=== PATIENT | male | born 1935 | race Caucasian/White ===

== ENCOUNTER → 2018-07-09 | Outpatient (CLI) | payer MEDICARE ==
[~2018-07-09] MED LIST: AMLO5TAB7 PO; ASPI-555 PO; CHOL500050 PO; FLUT220HFA IH; ISOSORBIDE MONONITRATE 30 MG PO; LISI10TA7 PO; NITR0.3T11 SL; PIOG45TA4 PO; PRAV10TA39 PO; PRED1TAB PO; PREDAOS OD; SITA50TA PO; UBID100C10 PO
== END | disposition home or self-care (01) ==
LOC: RAH 09:55
PROVIDERS: ATTEND Internal Medicine Critical Care Medicine
DX: J90 Pleural effusion, not elsewhere classified (principal); J98.11 Atelectasis; M47.895 Other spondylosis, thoracolumbar region
CPT/HCPCS: 71046

== ENCOUNTER 2018-08-10 06:44 | Day surgery (SDC) | payer MEDICARE ==
[2018-08-07 14:24] VITALS: BP 114/62
[2018-08-10] VITALS (10 sets, daily range): BP systolic 107–149; BP diastolic 60–77
[~2018-08-10] VITALS: Ht 188 cm; Wt 78.2 kg
[~2018-08-10 06:44] MED LIST changes: +ALLO100T PO; -AMLO5TAB7 PO; +AMLO5TAB9 PO; +FLUT16H NS; +FOLI1TAB15 PO; +KRIL1CAP12 PO; -LISI10TA7 PO; -NITR0.3T11 SL; -PREDAOS OD
[2018-08-10 07:36] LABS: BASOPHILS % (AUTO) 0.7 % (0.0-5.0); HEMATOCRIT 40.5 % (42-54); LYMPHOCYTES % (AUTO) 16.7 % (21.0-51.0); MEAN CORPUSCULAR HEMOGLOBIN 27.5 pg (27.0-33.0); MEAN CORPUSCULAR HGB CONC 32.1 g/dL (32.0-36.0); MEAN CORPUSCULAR VOLUME 85.6 fL (79-99); NEUTROPHILS % (AUTO) 66.6 % (40.0-77.0); PLATELET COUNT (AUTO) 268 K/uL (130-400); RED BLOOD CELL COUNT(AUTO) 4.73 MIL/uL (4.50-6.20); RED CELL DISTRIBUTION WIDTH 14.6 % (11.0-15.5); WHITE BLOOD COUNT (AUTO) 5.9 K/uL (4.8-10.8)
[2018-08-10 07:46] LABS: CREATININE 1.7 mg/dL (0.5-1.5)
[2018-08-10 07:49] LABS: INR 0.95 (0.85-1.15); PARTIAL THROMBOPLASTIN TIME 27.7 SEC (26.3-35.5)
[2018-08-10] MEDS ORDERED: SODIUM CHLORIDE 0.9% 1000ML 1,000 ML IV ONE (08:18)
[2018-08-10] MEDS ORDERED: LIDOCAINE HCL/EPINEPHRINE 50 ML VIAL IJ ONE (08:25)
[2018-08-10] MEDS ORDERED: LIDOCAINE HCL 1% MDV 50ML VIAL ONE (08:26)
--- NOTE | 2018-08-10 12:45 | NUR ---
transferred to [facility] in stable condition via stretcher by [facility]
[2018-08-10] MEDS ORDERED: FENTANYL CITRATE PF 50 MCG/1 ML 2ML VIAL ONE (13:07)
[2018-08-10] MEDS ORDERED: MIDAZOLAM HCL 1 MG/ML 2ML VIAL ONE (13:18)
[2018-08-10] MEDS ORDERED: OCTYL 2-CYANOACRYLATE 1 EACH TP ONE (13:31)
--- NOTE | 2018-08-10 14:05 | NUR ---
back from label paster, port a cath to right upper chest dressing clean dry intact, no signs of hematoma or bleeding, dressing to right neck area clean dry intact no signs of hematoma or bleeding...awake,alert, oriented x3, head of bed elevated...bilateral breath sounds clear, no shortness of breath
--- NOTE | 2018-08-10 16:00 | NUR ---
dressings to right upper chest and right neck no hematoma,no bleeding,no shortness of breath...stable condition for discharge
== END 2018-08-10 16:05 | disposition home or self-care (01) ==
LOC: DAH 06:44
PROVIDERS: ATTEND Internal Medicine Hematology & Oncology
DX: Z45.2 Encounter for adjustment and management of vascular access device (principal); E78.5 Hyperlipidemia, unspecified; I12.9 Hypertensive chronic kidney disease with stage 1 through stage 4 chronic kidney disease, or unspecified chronic kidney disease; E11.22 Type 2 diabetes mellitus with diabetic chronic kidney disease; N18.9 Chronic kidney disease, unspecified; I25.10 Atherosclerotic heart disease of native coronary artery without angina pectoris; Z98.890 Other specified postprocedural states; Z79.84 Long term (current) use of oral hypoglycemic drugs; Z87.891 Personal history of nicotine dependence; Z88.8 Allergy status to other drugs, medicaments and biological substances
CPT/HCPCS: 36415; 36561; 77001; 80048; 82948; 85025; 85610; 85730; A4606; C1788; C1894; J1644 ×2; J2250; J3010; J3490; J7030; 99156; 99157

== ENCOUNTER 2018-08-16 11:05 | Emergency (ER) | payer MEDICARE ==
[2018-08-16 12:14] LABS: BASOPHILS % (AUTO) 0.3 % (0.0-5.0); EOSINOPHILS % (AUTO) 1.1 % (0.0-8.0); HEMATOCRIT 40.9 % (42-54); LYMPHOCYTES % (AUTO) 5.8 % (21.0-51.0); MEAN CORPUSCULAR HEMOGLOBIN 27.6 pg (27.0-33.0); MEAN CORPUSCULAR HGB CONC 32.6 g/dL (32.0-36.0); MEAN CORPUSCULAR VOLUME 84.7 fL (79-99); MONOCYTES % (AUTO) 0.8 % (3.0-13.0); PLATELET COUNT (AUTO) 206 K/uL (130-400); RED BLOOD CELL COUNT(AUTO) 4.83 MIL/uL (4.50-6.20); RED CELL DISTRIBUTION WIDTH 14.6 % (11.0-15.5); WHITE BLOOD COUNT (AUTO) 6.9 K/uL (4.8-10.8)
[2018-08-16 12:27] LABS: INR 0.91 (0.85-1.15); PARTIAL THROMBOPLASTIN TIME 27.4 SEC (26.3-35.5); PROTHROMBIN TIME 9.6 SEC (9.6-11.6)
[2018-08-16 12:44] LABS: ALBUMIN 3.2 g/dL (3.5-5.0); BILIRUBIN,TOTAL 0.7 mg/dL (0.2-1.0); CREATININE 1.5 mg/dL (0.5-1.5); POTASSIUM 4.5 mmol/L (3.5-5.1); TOTAL PROTEIN, SERUM 6.7 g/dL (6.0-8.3)
[2018-08-16 12:46] LABS: B-TYPE NATRIURETIC PEPTIDE 97 pg/mL (0-100)
[2018-08-16 12:58] LABS: APPEARANCE,URINE Clear (CLEAR); BILIRUBIN,URINE Negative (NEGATIVE); COLOR,URINE Yellow (YELLOW); GLUCOSE, URINE (UA) >=1000 mg/dL (NEGATIVE); KETONES,URINE Trace mg/dL (NEGATIVE); LEUKOCYTE ESTERASE ,URINE Negative (NEGATIVE); NITRATE,URINE Negative (NEGATIVE); OCCULT BLOOD,URINE Negative (NEGATIVE); PROTEIN,URINE POS 1+ (NEGATIVE)
[2018-08-16 13:31] LABS: BACTERIA,URINE Rare /HPF (None Seen); RBC,URINE None Seen /HPF (0-1); SQUAMOUS EPITHELIAL CELL,UR 0-2 /HPF (0-2); WBC,URINE 0-1 /HPF (0-1)
[2018-08-16] MEDS ORDERED: MORPHINE SULFATE 4 MG/1ML SYG ONE (16:18)
[2018-08-16] MEDS ORDERED: ONDANSETRON HCL 4 MG/2 ML VIAL ONE (16:18)
== END 2018-08-16 16:46 | disposition home or self-care (01) ==
LOC: EDH 11:05
DX: S22.41XA Multiple fractures of ribs, right side, initial encounter for closed fracture (principal); J18.1 Lobar pneumonia, unspecified organism; E87.1 Hypo-osmolality and hyponatremia; E11.9 Type 2 diabetes mellitus without complications; Z85.118 Personal history of other malignant neoplasm of bronchus and lung; Z87.891 Personal history of nicotine dependence; W01.10XA Fall on same level from slipping, tripping and stumbling with subsequent striking against unspecified object, initial encounter; Y93.89 Activity, other specified; Y92.89 Other specified places as the place of occurrence of the external cause; Y99.8 Other external cause status
CPT/HCPCS: 36415; 71045; 74176; 80053; 81001; 83880; 84484; 85025; 85610; 85730; 93005; 96374; 96375; 99284; J2270; J2405